=== PATIENT | female | born 1945 | race Caucasian/White ===

== ENCOUNTER 2018-08-30 09:43 | Inpatient (IN) ==
[2018-08-30] MEDS ORDERED: Sod Chloride 0.9% Inj 1,000 ML IV.SIG ONE (11:29)
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
[2018-08-30 11:54] LABS: Baso # (Auto) 0.1 th/mm3 (0.0-0.2); Baso % (Auto) 1.2 % (0.0-2.0); Eos # (Auto) 0.1 th/mm3 (0.0-0.4); Eos % (Auto) 1.3 % (0.0-4.0); Hematocrit 28.5 % (35.0-46.0); Hemoglobin 9.4 gm/dL (11.6-15.3); Lymph # (Auto) 1.8 th/mm3 (1.0-4.8); Lymph % (Auto) 22.5 % (9.0-44.0); Mean Corpuscular HGB Conc 33.1 % (32.0-36.0); Mean Corpuscular Hemoglobin 30.5 pg (27.0-34.0); Mean Corpuscular Volume 92.2 fL (80.0-100.0); Mean Platelet Volume 9.4 fL (7.0-11.0); Mono # (Auto) 0.6 th/mm3 (0.0-0.9); Mono % (Auto) 7.5 % (0.0-8.0); Neut # (Auto) 5.4 th/mm3 (1.8-7.7); Neut % (Auto) 67.5 % (16.0-70.0); Platelet Count 287 th/mm3 (150-450); Red Blood Count 3.09 mil/mm3 (4.00-5.30); Red Cell Distribution Width 13.5 % (11.6-17.2)
[2018-08-30 12:15] LABS: Bilirubin,Urine Negative (Negative); Clarity,Urine Clear (Clear); Color,Urine Yellow (Yellw/Straw); Glucose,Urine (UA) Negative (Negative); Hyaline Casts,Urine 5 /lpf (0-3); Leukocyte Esterase,Urine Negative (Negative); Mucus,Urine Few /lpf (Occasional); Nitrite,Urine Negative (Negative); Specific Gravity,Urine 1.008 (1.002-1.035); Squamous Epithelial Cell,Urine <1 /hpf (0-5)
[2018-08-30 12:17] LABS: Alanine Aminotransferase 22 U/L (10-53); Albumin 3.1 g/dL (3.4-5.0); Anion Gap 5 meq/L (5-15); Aspartate Aminotransferase 30 U/L (15-37); Blood Urea Nitrogen 18 mg/dL (7-18); Calcium 9.4 mg/dL (8.5-10.1); Carbon Dioxide 28.5 meq/L (21.0-32.0); Chloride 106 meq/L (98-107); Glomerular Filtration Rate 40 mL/min (>89); Glucose,Random 74 mg/dL (74-106); Magnesium 2.2 mg/dL (1.5-2.5); Sodium 139 meq/L (136-145)
[2018-08-30 12:26] LABS: Alkaline Phosphatase 88 U/L (45-117); Thyroid Stimulating Hormone 0.606 uIU/mL (0.358-3.740); Total Protein 7.6 g/dL (6.4-8.2)
[2018-08-30 13:03] LABS: Amphetamine Screen,Urine Neg (Neg); Barbiturate Screen,Urine Neg (Neg); Cannabinoid Screen,Urine Neg (Neg); Cocaine Screen,Urine Neg (Neg)
[2018-08-30 13:05] LABS: Opiate Screen,Urine Neg (Neg)
[2018-08-30] MEDS ORDERED: Aluminum/Magnesium/Simethacone Susp 30 ML UDC PO PRN (15:07)
[2018-08-30] MEDS ORDERED: Acetaminophen 325 MG Tablet PO PRN (15:16)
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
[2018-08-30] MEDS: MAGNESIUM OXIDE 400 MG PO SCH ×2 (19:29→22:53)
[2018-08-30] MEDS ORDERED: MIRTAZAPINE 7.5 MG PO SCH (21:00)
[2018-08-30] MEDS ORDERED: DOCUSATE SODIUM 50 MG PO SCH (21:00)
[2018-08-30] MEDS: Ascorbic Acid 500 MG Tablet PO SCH (21:08)
--- NOTE | 2018-08-30 22:53 | XR ---
EXAM DATE: 08/30/2018 10:50 PM EST AGE/SEX: 73 years / Female INDICATIONS: Left elbow pain and bruising after fall. CLINICAL DATA: This is the patient's initial encounter. Patient reports that signs and symptoms have been present for 1 day and indicates a pain score of Nonresponsive. MEDICAL/SURGICAL HISTORY: Non-responsive. Non-responsive. COMPARISON: No prior exams available for comparison. FINDINGS: Bony structures are intact and in normal alignment. Joints are intact without dislocation or signifi cant arthropathy. Osseous density is normal. Soft tissues are unremarkable. No radiopaque foreign bodies seen. CONCLUSION: No evidence of recent bony injury. Electronically signed by: Yoshi Muller MD 08/30/2018 10:51 PM EST
--- NOTE | 2018-08-30 22:59 | CT ---
EXAM DATE: 08/30/2018 10:56 PM EST AGE/SEX: 73 years / Female INDICATIONS: Trauma. Fall. Vertigo. CLINICAL DATA: This is the patient's initial encounter. Patient reports that signs and symptoms have been present for 1 day and indicates a pain score of 2/10. MEDICAL/SURGICAL HISTORY: Alzheimer's disease. Renal insufficiency, chronic. Diabetes. Hypertens ion. None. RADIATION DOSE: 33.97 CTDI (mGy) COMPARISON: No prior exams available for comparison. TECHNIQUE: CT of the head without contrast. Using automated exposure control and adjustment of the mA and/or kV according to patient size, radiation dose was kept as low as reasonably achievable to ob tain optimal diagnostic quality images. DICOM format image data is available electronically for revi ew and comparison. FINDINGS: Cerebrum: The ventricles are normal for age. No evidence of midline shift, mass lesion, hemorrhage or acute infarction. No extraaxial fluid collections are seen. Posterior Fossa: The cerebellum and brainstem are intact. The 4th ventricle is midline. The cerebe llopontine angle is unremarkable. Extracranial: The visualized portion of the orbits is intact. Skull: The calvaria is intact. No evidence of skull fracture. CONCLUSION: No acute intracranial injury . Electronically signed by: Yoshi Muller MD 08/30/2018 10:58 PM EST
[2018-08-31] MEDS: Escitalopram 10 MG Tablet PO SCH (08:44)
[2018-08-31] MEDS: amLODIPine 5 MG Tablet PO SCH (08:44)
[2018-08-31] MEDS: Lisinopril 20 MG Tablet PO SCH (08:44)
[2018-08-31] MEDS: Lactobacillus Acidophilus/L. Spores Tablet PO SCH (08:45)
[2018-08-31] MEDS: Ascorbic Acid 500 MG Tablet PO SCH (08:45)
[2018-08-31] MEDS: Multivitamin/Minerals Therapeutic Tablet PO SCH (08:45)
[2018-08-31] MEDS: Insulin Detemir Inj 1,000 UNIT/10 ML Vial SQ SCH (08:46)
[2018-08-31] MEDS: Docusate Sodium Liq 100 MG/10 ML UDC PO SCH (08:46)
[2018-08-31] MEDS: MAGNESIUM OXIDE 400 MG PO SCH ×2 (08:48→13:40)
[2018-08-31 12:28] LABS: Calcium 9.8 mg/dL (8.5-10.1); Carbon Dioxide 28.5 meq/L (21.0-32.0); Potassium 5.3 meq/L (3.5-5.1)
[2018-08-31 12:36] LABS: Chol/HDL Ratio 1.79 Ratio; HDL Cholesterol 56.3 mg/dL (40.0-60.0)
[2018-08-31] MEDS ORDERED: Aluminum/Magnesium/Simethacone Susp 30 ML UDC PO PRN (15:56)
[2018-08-31] MEDS ORDERED: Bisacodyl 10 MG Supp RECTAL PRN (15:56)
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
[2018-08-31 16:21] LABS: Hemoglobin A1c 5.7 % (4.3-6.0)
[2018-08-31] MEDS: Magnesium Oxide 400 MG Tablet PO SCH (17:13)
--- NOTE | 2018-08-31 17:14 | P.CON ---
History of Present Illness Consult date: 08/31/18 Requesting Physician: Yoshi Barry Reason for Consult: HTN and DM Primary Care Provider: PROVIDER NON STAFF Chief Complaint: dementia and behavioral disturbances History of Present Illness: This is a 73-year-old female patient who was brought here under Wilkes Act from [facility] with dementia with behavioral disturbances and aggressive behavior. Supposedly patient has underwent recent cholecystectomy at another facility and since that time her dementia has been progressing including worsening sundowning and aggressive behavior. At the time of assessment patient is resting comfortable in bed. Awakens to voice. Is very confused and unable to contribute to any of her medical history of occurrences leading up to presentation to the hospital. There are also no records to review in the medical record regarding patient's medical history. [facility] has set up a meeting to speak with family tomorrow. [facility] has been consulted for medical management of her diabetes and hypertension. Review of Systems unobtainable due to mental condition PMFSH - History History Provided By: Patient, Medical Record - Medical History Medical History: Medical History (Last Reviewed 08/31/18 @ 17:26 by Rosa Horton) Alzheimer disease Anxiety Bipolar 1 disorder Chronic kidney disease Dementia Diabetes Hypercholesteremia Hypertension - Surgical History Surgical History: Surgical History (Last Updated 08/31/18 @ 17:27 by Rosa Horton) History of cholecystectomy - Family History Family History: Family History (Last Updated 08/31/18 @ 17:26 by Rosa Horton) Other Family history non-contributory - Social History I have reviewed the patient's Social History: Yes - Tobacco History Second Hand Smoke Exposure: No Tobacco Use In Past 30 Days: No Smoking Status: Never smoker - Alcohol History How Often Do You Have a Drink Containing Alcohol: Never - Substance Use History Substance History: No History of Abuse - Travel History Recent Travel in the [place] Within the Last 8 Weeks: No Recent Travel Out of the Country Within the Last 8 Weeks: No - Immunization History Tetanus Immunization: Unsure Medications and Allergies Active Medications: Active Medications Acetaminophen (Tylenol) 650 mg PO Q4H PRN PRN Reason: Mild Pain/Temp 100F or above Al Hydrox/Mg Hydrox/Simethicone (Mag-Al Plus Susp Liq) 30 ml PO Q6H PRN PRN Reason: DYSPEPSIA Al Hydroxide/Mg Hydroxide (Milk Of Magnesia Liq) 30 ml PO Q12H PRN PRN Reason: Mild Constipation Amlodipine Besylate (Norvasc) 5 mg PO DAILY [facility] Last Admin: 08/31/18 08:44 Dose: 5 mg Ascorbic Acid (Vitamin C) 500 mg PO BID [facility] Last Admin: 08/31/18 08:45 Dose: 500 mg Aspirin (Ecotrin) 81 mg PO DAILY [facility] Last Admin: 08/31/18 08:44 Dose: 81 mg Atorvastatin Calcium (Lipitor) 40 mg PO DAILY [facility] Last Admin: 08/31/18 08:45 Dose: 40 mg Bisacodyl (Dulcolax Supp) 10 mg RECTAL DAILY PRN PRN Reason: SEVERE CONSITIPATION Diphenhydramine HCl (Benadryl) 50 mg PO HS PRN PRN Reason: INSOMNIA Docusate Sodium (Colace Liq) 50 mg PO BID [facility] Last Admin: 08/31/18 08:46 Dose: 50 mg Escitalopram Oxalate (Lexapro) 10 mg PO DAILY [facility] Last Admin: 08/31/18 08:44 Dose: 10 mg Famotidine (Pepcid) 10 mg PO DAILY [facility] Hydroxyzine HCl (Atarax) 50 mg PO Q6H PRN PRN Reason: ANXIETY Last Admin: 08/31/18 17:13 Dose: 50 mg Hydroxyzine Pamoate (Vistaril) 25 mg PO Q6H PRN PRN Reason: Agitation Last Admin: 08/31/18 08:50 Dose: 25 mg Insulin Detemir (Levemir Inj) 14 unit SQ DAILY [facility] Last Admin: 08/31/18 08:46 Dose: 14 unit Lactobacillus Acidophilus (Lactinex) 1 tab PO DAILY [facility] Last Admin: 08/31/18 08:45 Dose: 1 tab Lactulose (Lactulose Liq) 30 ml PO DAILY PRN PRN Reason: SEVERE CONSITIPATION Lisinopril (Prinivil) 40 mg PO DAILY [facility] Last Admin: 08/31/18 08:44 Dose: 40 mg Magnesium Oxide (Mag-Ox) 400 mg PO BID@1100,1800 [facility] Last Admin: 08/31/18 17:13 Dose: 400 mg Metoprolol Succinate (Toprol Xl) 50 mg PO DAILY [facility] Last Admin: 08/31/18 08:44 Dose: 50 mg Mirtazapine (Remeron) 7.5 mg PO HS [facility] Miscellaneous (Pill Splitter) 1 each OTHER UNSCH PRN PRN Reason: PILL SPLITTER Miscellaneous (Pill Splitter) 1 each OTHER UNSCH PRN PRN Reason: PILL SPLITTER Multivitamins/Minerals (Theragran-M) 1 tab PO DAILY [facility] Last Admin: 08/31/18 08:45 Dose: 1 tab Pantoprazole Sodium (Protonix) 40 mg PO DAILY [facility] Last Admin: 08/31/18 08:44 Dose: 40 mg Potassium Chloride (Klor-Con 10) 10 meq PO DAILY [facility] Last Admin: 08/31/18 08:44 Dose: 10 meq Senna/Docusate Sodium (Mady-Colace) 1 tab PO BID [facility] Sennosides (Senokot) 8.6 mg PO BID [facility] Last Admin: 08/31/18 08:48 Dose: 8.6 mg Sennosides (Senokot) 17.2 mg PO Q12H PRN PRN Reason: Moderate Constipation Allergies Allergy/AdvReac Type Severity Reaction Status Date / Time No Known Allergies Allergy Unverified 08/30/18 11:07 Home Medications Medication Instructions Recorded Confirmed Type Lactobacillus acidophilus 1 tab PO DAILY 08/30/18 08/30/18 History acetaminophen [Tylenol] 650 mg PO Q4H PRN 08/30/18 08/30/18 History amlodipine 5 mg PO DAILY 08/30/18 08/30/18 History ascorbic acid (vitamin C) [Vitamin 500 mg PO BID 08/30/18 08/30/18 History C] aspirin 81 mg PO DAILY 08/30/18 08/30/18 History bisacodyl [Dulcolax (bisacodyl)] 10 mg [place] DAILY PRN 08/30/18 08/30/18 History docusate sodium [COLACE Clear] 50 mg PO BID 08/30/18 08/30/18 History escitalopram oxalate [Lexapro] 10 mg PO DAILY 08/30/18 08/30/18 History famotidine [Pepcid] 40 mg PO DAILY 08/30/18 08/30/18 History hydroxyzine pamoate [Vistaril] 25 mg PO Q6H PRN 08/30/18 08/30/18 History insulin glargine [Basaglar KwikPen 14 unit SUBCUT DAILY 08/30/18 08/30/18 History U-100 Insulin] lisinopril 40 mg PO DAILY 08/30/18 08/30/18 History magnesium citrate [Citroma] 296 ml PO QAM PRN 08/30/18 08/30/18 History magnesium hydroxide [Milk of 30 ml PO HS PRN 08/30/18 08/30/18 History Magnesia] magnesium oxide 400 mg PO QID 08/30/18 08/30/18 History metoprolol succinate 50 mg PO DAILY 08/30/18 08/30/18 History mirtazapine 7.5 mg PO HS 08/30/18 08/30/18 History multivitamin with minerals 1 tab PO DAILY 08/30/18 08/30/18 History omeprazole 40 mg PO DAILY 08/30/18 08/30/18 History potassium chloride [Klor-Con 10] 10 meq PO DAILY 08/30/18 08/30/18 History rosuvastatin [Crestor] 20 mg PO DAILY 08/30/18 08/30/18 History sennosides 8.6 mg PO BID 08/30/18 08/30/18 History sodium phosphates [Fleet Enema] 1 applicatio [place] DAILY PRN 08/30/18 08/30/18 History Physical Exam Vital signs: Vital Signs 08/30/18 17:37 08/30/18 23:17 08/31/18 00:17 Temperature 98.1 F 98 F Pulse Rate 56 L 57 L 52 L Respiratory Rate 16 16 16 Blood Pressure 115/53 L 122/53 L 132/56 L Pulse Oximetry 96 98 96 08/31/18 01:17 08/31/18 06:00 08/31/18 06:17 Temperature 98.4 F Pulse Rate 52 L 71 71 Respiratory Rate 16 17 18 Blood Pressure 128/62 123/72 123/72 Pulse Oximetry 94 L 08/31/18 13:22 Temperature Pulse Rate 65 Respiratory Rate 16 Blood Pressure 127/55 L Pulse Oximetry 95 Intake & Output 08/30/18 08/31/18 08/31/18 18:59 06:59 18:59 Intake Total 1000 / 1000 Balance 1000 / 1000 Weight 54.6 kg Intake: IV 1000 / 1000 NS Inj 1,000 ML @ Wide Open IV. 1000 / 1000 SIG BOLUS ONE Rx#:[id number] Other: Weight On Admission 54.6 kg Narrative: GENERAL: Well-developed, well-nourished patient resting in bed. Confused. SKIN: Warm and dry. HEAD: Normocephalic. Atraumatic. EYES: Pupils equal and round. No scleral icterus. No injection or drainage. ENT: No nasal bleeding or discharge. Mucous membranes pink and moist. NECK: Supple. Trachea midline. CARDIOVASCULAR: Regular rate and rhythm. S1, S2 noted. RESPIRATORY: No accessory muscle use. Diminished breath sounds. Breath sounds equal bilaterally. GASTROINTESTINAL: Abdomen soft, non-tender, nondistended. Normoactive bowel sounds x4. MUSCULOSKELETAL: No obvious deformities. Extremities without clubbing, cyanosis , or edema. NEUROLOGICAL: Confused. No obvious cranial nerve deficits. Motor grossly within normal limits. 5/5 muscle strength in bilateral upper and lower extremities. . Assessment and Plan - Assessment (1) Dementia with behavioral disturbance Code(s): F03.91 - Unspecified dementia with behavioral disturbance Status: Acute (2) Alzheimer's disease with late onset Code(s): G30.1 - Alzheimer's disease with late onset; F02.80 - Dementia in other diseases classified elsewhere without behavioral disturbance Status: Acute (3) Dementia in other diseases classified elsewhere with behavioral disturbance Code(s): F02.81 - Dementia in other diseases classified elsewhere with behavioral disturbance Status: Acute - Plan This is a 73-year-old female patient with Alzheimer's dementia with behavioral disturbances -Management per psychiatric team. -Continue Atarax and Vistaril. History of hypertension, chronic -Continue to monitor blood pressure trends. -Continue Norvasc and lisinopril. Type 2 diabetes, chronic -Accu-Chek, monitor blood sugar trends. -Continue long-acting insulin. -Diabetic diet. Hyperlipidemia: Continue statin. Mild hyperkalemia -K increased to 5.3. Will give one time dose of Lactulose. -Check BMP in am. Chronic kidney disease -Stable. Creatinine 1.3 which is baseline for patient. Continue to monitor. -Asymptomatic. Urinating well. Normocytic, normochromic anemia -Hemoglobin 9.4 on presentation. No signs of bleeding. No known history of anemia. -Will check iron profile. Recheck CBC in am. -Obtain prior labs from PCP. Follow. -Monitor for any bleeding. DVT prophylaxis: Ambulation. Thank you for this consultation. We will follow with you.
[2018-08-31] MEDS ORDERED: Senna/Docusate Sodium 8.6/50 MG Tablet PO SCH (21:00)
[2018-08-31 21:22] LABS: % Iron Saturation 11.1 % (20-50)
[2018-09-01] MEDS: Docusate Sodium Liq 100 MG/10 ML UDC PO SCH ×3 (01:51→20:07)
[2018-09-01] MEDS: Mirtazapine 15 MG Tablet PO SCH ×2 (01:52→20:06)
[2018-09-01] MEDS: Ascorbic Acid 500 MG Tablet PO SCH ×3 (01:54→20:07)
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
[2018-09-01] MEDS: Escitalopram 10 MG Tablet PO SCH (09:39)
[2018-09-01] MEDS: Lisinopril 20 MG Tablet PO SCH (09:40)
[2018-09-01] MEDS: Famotidine 20 MG Tablet PO SCH (09:41)
[2018-09-01] MEDS: Lactobacillus Acidophilus/L. Spores Tablet PO SCH (09:41)
[2018-09-01] MEDS: Multivitamin/Minerals Therapeutic Tablet PO SCH (09:43)
[2018-09-01] MEDS: amLODIPine 5 MG Tablet PO SCH (09:43)
[2018-09-01] MEDS: Insulin Detemir Inj 1,000 UNIT/10 ML Vial SQ SCH (10:16)
--- NOTE | 2018-09-01 10:43 | P.PNPSY ---
Subjective Remarks: Patient seen today in day room with floor staff, chart reviewed, patient compliant medication. Patient continues diffusely confused disoriented though calmer today less vigilant or paranoid. Did acknowledge memory issues that has made her somewhat sad. The patient's focus with me was measured and 1 or 2 minutes before she wandered off. I later spoke with patient's and daughter. They requested that she be made a DNR. They have given me verbal okay for her psychotropic medication I discussed with him the use of Seroquel in small doses they have approved of that also. They have also talked with [facility] for possible placement there will have a counselor Jessie called to him at [facility] to discuss this. Patient did have some episodes of dyscontrol last night necessitating an ETO. We will start her on Seroquel 12.5 mg 2 PM and 8 PM Review of Systems All other systems reviewed negative except as stated in HPI Mental Status Examination Appearance: Appropriate Consciousness: Alert Orientation: Person Motor Activity: Abnormal gait (Walks with a cane at times, somewhat shuffling) Speech: Other (Poverty of speech) Language: Adequate Fund of Knowledge: Poor Attention and Concentration: Inadequate Memory: Impaired Mood: Irritable Affect: Other (Slight increased range and intensity) Thought Process & Associations: Other (Unable to assess) Thought Content: Other (Unable to assess) Hallucination Type: None Delusion Type: Paranoid (Family reports patient was breathing on the window with remote control yelling for someone to help her) Suicidal Ideation: No Suicidal Plan: No Suicidal Intention: No Homicidal Ideation: No Homicidal Plan: No Homicidal Intention: No Insight: Poor Judgment: Poor Assessment and Plan - Assessment (1) Alzheimer's disease with late onset Code(s): G30.1 - Alzheimer's disease with late onset; F02.80 - Dementia in other diseases classified elsewhere without behavioral disturbance Status: Acute (2) Dementia in other diseases classified elsewhere with behavioral disturbance Code(s): F02.81 - Dementia in other diseases classified elsewhere with behavioral disturbance Status: Acute - Plan Plan: Patient remains diffusely confused disoriented and demented and some sundowning behaviors last night. Did meet with patient's family today patient will be made a DNR. We will initiate Seroquel low-dose 2 times per day continue to work with placement issues Justification for Continued Inpatient Stay: At this time patient would decompensate a place to a lower level of care Discharge Planning: To be determined we are working with family related to placement Request Healthcare Surrogate/Guardian Advocate?: Yes
[2018-09-01] MEDS: Magnesium Oxide 400 MG Tablet PO SCH ×2 (12:31→18:43)
[2018-09-01] MEDS: QUEtiapine 25 MG Tablet PO SCH ×2 (13:56→20:08)
--- NOTE | 2018-09-01 15:15 | P.TTN ---
- Patient Problems Problems: 1. Discharge planning 2. Medication compliance 3. Knowledge deficit 4. Lack of coping skills - Progress Toward Goals Provider Present: Dr. Ganesh Barry, Dr. Raúl Beltran Provider Input: 09/01/18: New admission will meet today Nurse(s) Present: Renate Nurse Input: 09/01/18: Med Compliant, Exit seeking, Guarded. Psychiatric Counselors Present: Aquilino Galvan Jr., [facility], Jessie Mayorga, [facility] Psychiatric Therapist Input: 09/01/18: Counselor faxed packet to [facility]. Group Spec/RT/OT/NATH Present: Joanne Francisco, GPS, Ashkan Jenkins, OT Group Spec/RT/OT/NATH Input: 09/01/18: Pt is on a 1:1 and is unable to tolerate the group activities. Pt has a diffucult time remaining still and will pade the hallways most of the day. Will encourage group participation. - Discharge Plan Possible placement - Documentation Teaching Recipient: Patient
--- NOTE | 2018-09-01 15:58 | P.PNIM ---
Subjective Interval history: Follow-up with hypertension, diabetes type 2, hyperlipidemia, hyperkalemia, CKD , anemia, and Alzheimer's dementia with behavioral disturbance. Patient seen and examined, sitting in the chair in the day room with a sitter. Sitter reported patient had a fall without injury. However, patient complained of left elbow pain and ecchymosis. X-ray negative, and head CT no acute findings. COURTESY CAR DRIVER reported patient was hitting staff and nurses, and very irritable. Patient denies any pain, chest pain or shortness of breath, denies any headache or dizziness, denies any abdominal pain, nausea, vomiting, diarrhea or constipation. Patient denies any fever or chills. Patient alert and oriented x1 and able to answer some of the questions. Physical Exam Vital signs: Vital Signs 08/31/18 17:26 08/31/18 20:00 Pulse Rate 79 Respiratory Rate 16 20 Blood Pressure 128/58 L Pulse Oximetry 96 Narrative: GENERAL: Well-developed, well-nourished, female in no apparent distress SKIN: Warm and dry. HEAD: Atraumatic. Normocephalic. EYES: Pupils equal and round. No scleral icterus. No injection or drainage. ENT: No nasal bleeding or discharge. Mucous membranes pink and moist. NECK: Trachea midline. No JVD. CARDIOVASCULAR: Regular rate and rhythm. RESPIRATORY: No accessory muscle use. Clear to auscultation. Breath sounds equal bilaterally. GASTROINTESTINAL: Abdomen soft, non-tender, nondistended. Hepatic and splenic margins not palpable. MUSCULOSKELETAL: Extremities without clubbing, cyanosis, or edema. No obvious deformities. Left elbow ecchymosis NEUROLOGICAL: Awake and alert and oriented x1. No obvious cranial nerve deficits. Motor grossly within normal limits. Generalized weakness moving all 4 extremities . Normal speech. PSYCHIATRIC: Flat mood and affect; insight and judgment unreliable Results - Labs CBC & Chem 7: 08/30/18 11:25 08/31/18 11:27 Laboratory Results - last 24 hr 08/31/18 08/31/18 08/31/18 11:27 11: 15:56 POC Glucose 81 Hemoglobin A1c 5.7 Iron 27 L TIBC 242 L % Saturation 11.1 L Assessment and Plan - Assessment (1) Dementia with behavioral disturbance Code(s): F03.91 - Unspecified dementia with behavioral disturbance Status: Acute (2) Alzheimer's disease with late onset Code(s): G30.1 - Alzheimer's disease with late onset; F02.80 - Dementia in other diseases classified elsewhere without behavioral disturbance Status: Acute (3) Dementia in other diseases classified elsewhere with behavioral disturbance Code(s): F02.81 - Dementia in other diseases classified elsewhere with behavioral disturbance Status: Acute - Plan This is a 73-year-old female patient with past medical history of Alzheimer's dementia, hypertension, diabetes mellitus type 2, hyperlipidemia, and chronic kidney disease. Alzheimer's dementia with behavioral disturbances Altered mental status Fall -Management per psychiatric team. -Continue Atarax and Vistaril. -Rule out metabolic causes, urinalysis negative -Patient refused labs this morning recheck again in a.m. -Fall risk precaution, with sitter History of hypertension, chronic Hyperlipidemia Blood pressure controlled, in the low side -Continue to monitor blood pressure trends. -Continue Norvasc and lisinopril, : Continue statin -Hold metoprolol for low blood pressure and recent fall -Monitor blood pressure and adjust medication as necessary Type 2 diabetes, chronic Blood sugar fair controlled -Continue Accu-Chek, monitor blood sugar trends. -Continue long-acting insulin, Levemir -Diabetic diet -Check hemoglobin A1c, pending Chronic kidney disease Mild hyperkalemia -Stable. Creatinine 1.3 which is baseline for patient -Asymptomatic. Urinating well. -K increased to 5.3. Given lactulose yesterday -Recheck check BMP in am found follow renal indicis Normocytic, normochromic anemia No known history of anemia. No signs of bleeding. -Hemoglobin 9.4 on presentation. -Will check iron profile. Recheck CBC in am. -Obtain prior labs from PCP. Follow. -Monitor for any bleeding. DVT prophylaxis: Ambulation. Code Status: Full code Discussed Condition With: Patient and nurse
--- NOTE | 2018-09-01 16:26 | XR ---
EXAM DATE: 09/01/2018 4:21 PM EST AGE/SEX: 73 years / Female INDICATIONS: Patient stubbed toes and complains of toe pain, mostly in 2nd digit. CLINICAL DATA: This is the patient's initial encounter. Patient reports that signs and symptoms have been present for 1 day and indicates a pain score of 10/10. MEDICAL/SURGICAL HISTORY: None. . Right ankle ORIF. COMPARISON: No prior exams available for comparison. FINDINGS: Bony structures are demineralized. There is no evidence of acute fracture or dislocation. Fixation hardware is identified in the lower fibula and tibia. There are no destructive changes. CONCLUSION: No evidence of acute fracture. Significant bone demineralization. Status post ORIF of the distal tibia and fibula. Electronically signed by: Oswaldo Hidalgo MD 09/01/2018 4:25 PM EST
[2018-09-02] MEDS: Insulin Detemir Inj 1,000 UNIT/10 ML Vial SQ SCH (09:59)
[2018-09-02] MEDS: Magnesium Oxide 400 MG Tablet PO SCH (11:14)
[2018-09-02] MEDS: Ascorbic Acid 500 MG Tablet PO SCH ×2 (11:15→20:59)
[2018-09-02] MEDS: Famotidine 20 MG Tablet PO SCH (11:15)
[2018-09-02] MEDS: Escitalopram 10 MG Tablet PO SCH (11:16)
[2018-09-02] MEDS: Lactobacillus Acidophilus/L. Spores Tablet PO SCH (11:16)
[2018-09-02] MEDS: Multivitamin/Minerals Therapeutic Tablet PO SCH (11:16)
[2018-09-02] MEDS: Docusate Sodium Liq 100 MG/10 ML UDC PO SCH ×2 (11:23→20:58)
[2018-09-02] MEDS: Lisinopril 20 MG Tablet PO SCH (11:25)
[2018-09-02] MEDS: amLODIPine 5 MG Tablet PO SCH (11:25)
--- NOTE | 2018-09-02 14:10 | P.PNPSY ---
Subjective Remarks: Patient seen and etienne today with one-to-one and nurse Dawson, chart reviewed, patient increasingly agitated irritable yelling crying wandering into other patient's rooms being markedly resistant to any type of intervention. At this point I feel patient does need as needed bed we will offer 1 mg Ativan IM at this time. We will also increase the scheduled Seroquel to 3 times daily from twice daily Review of Systems All other systems reviewed negative except as stated in HPI Mental Status Examination Appearance: Disheveled Consciousness: Alert Orientation: Person Motor Activity: Abnormal gait (Somewhat unsteady gait) Speech: Rapid, Other (Some poverty of speech) Language: Other (Limited) Fund of Knowledge: Poor Attention and Concentration: Inadequate Memory: Impaired Mood: Sad, Oppositional Affect: Other (Increased range and intensity) Thought Process & Associations: Disorganized Thought Content: Other (Disorganized) Hallucination Type: None Delusion Type: None Suicidal Ideation: No Suicidal Plan: No Suicidal Intention: No Homicidal Ideation: No Homicidal Plan: No Homicidal Intention: No Insight: Poor Judgment: Poor Assessment and Plan - Assessment (1) Alzheimer's disease with late onset Code(s): G30.1 - Alzheimer's disease with late onset; F02.80 - Dementia in other diseases classified elsewhere without behavioral disturbance Status: Acute - Plan Plan: Patient continues markedly demented though today with increased agitation screaming yelling defiant behaviors and sustaining a as needed of Ativan. Also she on the medication adjustments above Justification for Continued Inpatient Stay: At this time patient would decompensate if placed in a lower level of care Discharge Planning: To be determined with assistance of family Request Healthcare Surrogate/Guardian Advocate?: Yes (1) Alzheimer's disease with late onset Qualifiers: Dementia behavioral disturbance: with behavioral disturbance Qualified Code(s ): G30.1 - Alzheimer's disease with late onset; F02.81 - Dementia in other diseases classified elsewhere with behavioral disturbance
--- NOTE | 2018-09-02 14:27 | P.PNIM ---
Subjective Interval history: Follow-up visit anemia, mild hyperkalemia, DM 2, HTN, Alzheimer's. Patient seen and examined today. Very irritable. Reported to have been hitting staff since this morning. Has been pacing and walking around trying to elope. Does not want to be examined. Attempted to speak and examined patiet, aggressive wanting to hit. Physical Exam Vital signs: Vital Signs 09/01/18 18:15 09/02/18 06:16 Temperature 97.2 F L Pulse Rate 70 73 Respiratory Rate 18 18 Blood Pressure 93/60 L 123/57 L Pulse Oximetry 93 L 94 L Intake & Output 09/01/18 09/02/18 09/02/18 18:59 06:59 18:59 Intake Total 360 / 360 Balance 360 / 360 Intake: Oral 360 / 360 Narrative: GENERAL: This is a well-developed elderly female, very aggressive and irritable , in no apparent distress. SKIN: Pale, HEENT: Normocephalic. Nose without bleeding. Airway patent. NECK: Trachea midline. MUSCULOSKELETAL: Extremities without clubbing, cyanosis, or edema. NEUROLOGICAL: Awake and alert. Moves all extremities. Results - Labs CBC & Chem 7: 08/30/18 11:25 08/31/18 11:27 - Imaging Impressions Foot X-Ray 09/01/18 00:00 CONCLUSION: No evidence of acute fracture. Significant bone demineralization. Status post ORIF of the distal tibia and fibula. Assessment and Plan - Assessment (1) Dementia with behavioral disturbance Code(s): F03.91 - Unspecified dementia with behavioral disturbance Status: Acute (2) Alzheimer's disease with late onset Code(s): G30.1 - Alzheimer's disease with late onset; F02.80 - Dementia in other diseases classified elsewhere without behavioral disturbance Status: Acute (3) Dementia in other diseases classified elsewhere with behavioral disturbance Code(s): F02.81 - Dementia in other diseases classified elsewhere with behavioral disturbance Status: Acute - Plan 72-year-old female with primary medical history of DM 2, HTN, dementia, Alzheimer's disease who initially came into the hospital under Wilkes act from [facility] secondary to aggressive behavior. She is now admitted to inpatient psychiatry unit for further evaluation. Consulted for assistance with medical management. Alzheimer's dementia with behavioral disturbances -Management per psychiatric team. -Continue Atarax and Vistaril -May need to increase Seroquel dose. Patient continues to be aggressive to staff. Hypertension, controlled HLD -BP <100, decrease lisinopril to 10 mg daily. Hold Norvasc. Continue ASA -Continue statin medication -Monitor BP trend Type 2 diabetes, chronic -Accu-Chek, monitor blood sugar trends. -Continue Levemir 14 units daily -Diabetic diet. Check hemoglobin A1c Mild hyperkalemia -K increased to 5.3. Discontinue potassium supplement. -Recheck BMP. BMP was ordered this a.m. but unable to get results possibly because patient has been very aggressive. Chronic kidney disease -Stable. Creatinine 1.3 which is baseline for patient. -Monitor renal indicis intermittently Normocytic, normochromic anemia Possibly anemia of chronic disease -No signs of bleeding. No known history of anemia. -Start iron supplement daily DVT prophylaxis, Ambulation. Code Status: Full code Discussed Condition With: Nursing Discharge Planning: DC disposition by primary team (2) Alzheimer's disease with late onset Qualifiers: Dementia behavioral disturbance: with behavioral disturbance Qualified Code(s ): G30.1 - Alzheimer's disease with late onset; F02.81 - Dementia in other diseases classified elsewhere with behavioral disturbance
[2018-09-02] MEDS: QUEtiapine 25 MG Tablet PO SCH (20:58)
[2018-09-02] MEDS: Mirtazapine 15 MG Tablet PO SCH (20:59)
[2018-09-03] MEDS: Insulin Detemir Inj 1,000 UNIT/10 ML Vial SQ SCH (09:54)
[2018-09-03] MEDS: Ascorbic Acid 500 MG Tablet PO SCH ×2 (14:14→20:00)
[2018-09-03] MEDS: Ferrous Sulfate 325 MG Tablet PO SCH (14:14)
[2018-09-03] MEDS: Multivitamin/Minerals Therapeutic Tablet PO SCH (14:16)
[2018-09-03] MEDS: Lisinopril 10 MG Tablet PO SCH (14:16)
[2018-09-03] MEDS: Famotidine 20 MG Tablet PO SCH (14:16)
[2018-09-03] MEDS: Magnesium Oxide 400 MG Tablet PO SCH (14:17)
[2018-09-03] MEDS: Escitalopram 10 MG Tablet PO SCH (14:17)
[2018-09-03] MEDS: Docusate Sodium Liq 100 MG/10 ML UDC PO SCH ×2 (14:21→20:00)
[2018-09-03] MEDS: QUEtiapine 25 MG Tablet PO SCH ×3 (14:22→20:00)
[2018-09-03] MEDS: Lactobacillus Acidophilus/L. Spores Tablet PO SCH (14:22)
--- NOTE | 2018-09-03 14:26 | P.PNPSY ---
Subjective Remarks: Patient seen and etienne with nurse Osman, chart reviewed, patient showing mixed compliance with medication refusing many of the oral medications if remains diffusely confused and wandering exit seeking needing redirection at times quite irritable and resistant to redirection. We will encourage patient is compliance with the oral Seroquel. She continues to refuse consider alternative medication Review of Systems All other systems reviewed negative except as stated in HPI Mental Status Examination Appearance: Disheveled Consciousness: Alert Orientation: Person Motor Activity: Abnormal gait (Somewhat unsteady gait) Speech: Rapid, Other (Some poverty of speech) Language: Other (Limited) Fund of Knowledge: Poor Attention and Concentration: Inadequate Memory: Impaired Mood: Angry, Sad, Oppositional Affect: Other (Increased range and intensity) Thought Process & Associations: Disorganized Thought Content: Other (Disorganized) Hallucination Type: None Delusion Type: None Suicidal Ideation: No Suicidal Plan: No Suicidal Intention: No Homicidal Ideation: No Homicidal Plan: No Homicidal Intention: No Insight: Poor Judgment: Poor Assessment and Plan - Assessment (1) Alzheimer's disease with late onset Code(s): G30.1 - Alzheimer's disease with late onset; F02.80 - Dementia in other diseases classified elsewhere without behavioral disturbance Status: Acute - Plan Plan: Patient remains diffusely confused disoriented demented, exit seeking at times angry especially when attempts are made at redirection and intervention with staff Justification for Continued Inpatient Stay: At this time patient would decompensate a place to a lower level of care Discharge Planning: To be determined with assistance of family Request Healthcare Surrogate/Guardian Advocate?: Yes (1) Alzheimer's disease with late onset Qualifiers: Dementia behavioral disturbance: with behavioral disturbance Qualified Code(s ): G30.1 - Alzheimer's disease with late onset; F02.81 - Dementia in other diseases classified elsewhere with behavioral disturbance
--- NOTE | 2018-09-03 15:00 | P.PNIM ---
Subjective Interval history: Follow-up visit anemia, mild hyperkalemia, DM 2, HTN, Alzheimer's. Patient seen and examined today. States she is doing well. Confuse. Attempts to get out of the unit, banging entry door. As per nursing, has been refusing meds on and off. She also refused lab draws. Physical Exam Vital signs: Vital Signs 09/02/18 18:04 Temperature 98.4 F Pulse Rate 87 Respiratory Rate 17 Blood Pressure 104/81 Pulse Oximetry 96 Intake & Output 09/02/18 09/03/18 09/03/18 18:59 06:59 18:59 Intake Total 600 / 600 120 / 120 Balance 600 / 600 120 / 120 Intake: Oral 600 / 600 120 / 120 Narrative: GENERAL: This is a thin appearing, elderly female, in no apparent distress. SKIN: Warm and dry. HEENT: Normocephalic. Pupils equal round and reactive. Nose without bleeding. Airway patent. NECK: Trachea midline. CARDIOVASCULAR: Regular rate and rhythm without murmurs, gallops, or rubs. RESPIRATORY: Clear to auscultation. Breath sounds equal bilaterally. No wheezes , rales, or rhonchi. GASTROINTESTINAL: Abdomen soft, non-tender, protuberant. Bowel Sounds normoactive x4. MUSCULOSKELETAL: Extremities without clubbing, cyanosis, or edema. NEUROLOGICAL: Awake and alert. Confuse. Moves all extremities. Normal speech. Results - Labs CBC & Chem 7: 08/30/18 11:25 08/31/18 11:27 Assessment and Plan - Assessment (1) Dementia with behavioral disturbance Code(s): F03.91 - Unspecified dementia with behavioral disturbance Status: Acute (2) Alzheimer's disease with late onset Code(s): G30.1 - Alzheimer's disease with late onset; F02.80 - Dementia in other diseases classified elsewhere without behavioral disturbance Status: Acute (3) Dementia in other diseases classified elsewhere with behavioral disturbance Code(s): F02.81 - Dementia in other diseases classified elsewhere with behavioral disturbance Status: Acute - Plan 72-year-old female with primary medical history of DM 2, HTN, dementia, Alzheimer's disease who initially came into the hospital under Wilkes act from [facility] secondary to aggressive behavior. She is now admitted to inpatient psychiatry unit for further evaluation. Consulted for assistance with medical management. Alzheimer's dementia with behavioral disturbances -Management per psychiatric team. -Continue Atarax and Vistaril -May need to increase Seroquel dose. Patient continues to be aggressive to staff. Hypertension, controlled HLD -Lisinopril 10 mg daily. Hold Norvasc. Continue ASA -Continue statin medication -Monitor BP trend Type 2 diabetes, chronic -Accu-Chek, monitor blood sugar trends. -Continue Levemir 14 units daily -Diabetic diet Mild hyperkalemia -K increased to 5.3. Discontinue potassium supplement. -Recheck BMP, unable to get results as patient has been refusing blood draw Chronic kidney disease -Stable. Creatinine 1.3 which is baseline for patient. -Monitor renal indicis intermittently Normocytic, normochromic anemia Possibly anemia of chronic disease -No signs of bleeding. No known history of anemia. -Iron supplement daily DVT prophylaxis, Ambulation. Stable from Hospitalist standpoint. We will sign off. Reconsult as needed. Thank you. Code Status: DNR Discussed Condition With: Nursing Discharge Planning: DC disposition by primary team (2) Alzheimer's disease with late onset Qualifiers: Dementia behavioral disturbance: with behavioral disturbance Qualified Code(s ): G30.1 - Alzheimer's disease with late onset; F02.81 - Dementia in other diseases classified elsewhere with behavioral disturbance
[2018-09-03] MEDS: Mirtazapine 15 MG Tablet PO SCH (20:00)
[2018-09-04] MEDS: Docusate Sodium Liq 100 MG/10 ML UDC PO SCH ×2 (09:03→22:30)
[2018-09-04] MEDS: Lisinopril 10 MG Tablet PO SCH (09:05)
[2018-09-04] MEDS: Magnesium Oxide 400 MG Tablet PO SCH (09:08)
[2018-09-04] MEDS: Escitalopram 10 MG Tablet PO SCH (09:08)
[2018-09-04] MEDS: Ascorbic Acid 500 MG Tablet PO SCH ×2 (09:08→22:30)
[2018-09-04] MEDS: Multivitamin/Minerals Therapeutic Tablet PO SCH (09:08)
[2018-09-04] MEDS: Ferrous Sulfate 325 MG Tablet PO SCH (09:09)
[2018-09-04] MEDS: Famotidine 20 MG Tablet PO SCH (09:09)
[2018-09-04] MEDS: Lactobacillus Acidophilus/L. Spores Tablet PO SCH (09:09)
[2018-09-04] MEDS: Insulin Detemir Inj 1,000 UNIT/10 ML Vial SQ SCH (09:11)
[2018-09-04] MEDS: QUEtiapine 25 MG Tablet PO SCH ×3 (09:12→22:31)
--- NOTE | 2018-09-04 13:32 | P.PNPSY ---
Subjective Remarks: Patient was seen and case discussed with nursing. Patient is alert and oriented x1. Nursing is concerned about a low blood sugar reading this morning. It is difficult to gauge what her pattern has been given her oppositional behavior and confusion. She remains internally stimulated, she is exit seeking Mental Status Examination Appearance: Disheveled Consciousness: Alert Orientation: Person Motor Activity: Abnormal gait (Somewhat unsteady gait) Speech: Rapid, Other (Some poverty of speech) Language: Other (Limited) Fund of Knowledge: Poor Attention and Concentration: Inadequate Memory: Impaired Mood: Angry, Sad, Oppositional Affect: Other (Increased range and intensity) Thought Process & Associations: Disorganized Thought Content: Other (Disorganized) Hallucination Type: None Delusion Type: None Suicidal Ideation: No Suicidal Plan: No Suicidal Intention: No Homicidal Ideation: No Homicidal Plan: No Homicidal Intention: No Insight: Poor Judgment: Poor Assessment and Plan - Assessment (1) Alzheimer's disease with late onset Code(s): G30.1 - Alzheimer's disease with late onset; F02.80 - Dementia in other diseases classified elsewhere without behavioral disturbance Status: Acute - Plan Plan: Consult hospitalist Justification for Continued Inpatient Stay: Patient would decompensate in a less restrictive setting Request Healthcare Surrogate/Guardian Advocate?: Yes (1) Alzheimer's disease with late onset Qualifiers: Dementia behavioral disturbance: with behavioral disturbance Qualified Code(s ): G30.1 - Alzheimer's disease with late onset; F02.81 - Dementia in other diseases classified elsewhere with behavioral disturbance
[2018-09-04] MEDS: Mirtazapine 15 MG Tablet PO SCH (22:30)
--- NOTE | 2018-09-05 08:44 | P.PNPSY ---
Subjective Remarks: Medical record reviewed and discussed with nursing staff. Patient in her room in bed. Rounded with LUCIANO Dawson. Patient is only alert to self. She is unaware that she is in the hospital. Sleeping and eating well. Refused am accu-check. Nursing staff reports no behavioral concerns. Medication compliant. Will only take medications from selective personnel. Review of Systems All other systems reviewed negative except as stated in HPI Mental Status Examination Appearance: Disheveled Consciousness: Alert Orientation: Person Motor Activity: Abnormal gait (Somewhat unsteady gait) Speech: Rapid, Other (Some poverty of speech) Language: Other (Limited) Fund of Knowledge: Poor Attention and Concentration: Inadequate Memory: Impaired Mood: Appropriate, Sad Affect: Other (Increased range and intensity) Thought Process & Associations: Disorganized Thought Content: Other (Disorganized) Hallucination Type: None Delusion Type: None Suicidal Ideation: No Suicidal Plan: No Suicidal Intention: No Homicidal Ideation: No Homicidal Plan: No Homicidal Intention: No Insight: Poor Judgment: Poor Assessment and Plan - Assessment (1) Dementia with behavioral disturbance Code(s): F03.91 - Unspecified dementia with behavioral disturbance Status: Acute - Plan Plan: Continue current treatment plan. Justification for Continued Inpatient Stay: Moving patient to less restrictive environment may result in her decompensation. Request Healthcare Surrogate/Guardian Advocate?: Yes
[2018-09-05] MEDS: Ascorbic Acid 500 MG Tablet PO SCH ×2 (09:00→20:42)
[2018-09-05] MEDS: Insulin Detemir Inj 1,000 UNIT/10 ML Vial SQ SCH (10:34)
[2018-09-05] MEDS: Escitalopram 10 MG Tablet PO SCH (10:37)
[2018-09-05] MEDS: Lisinopril 10 MG Tablet PO SCH (10:43)
[2018-09-05] MEDS: QUEtiapine 25 MG Tablet PO SCH ×3 (10:47→22:37)
[2018-09-05] MEDS: Lactobacillus Acidophilus/L. Spores Tablet PO SCH (10:49)
[2018-09-05] MEDS: Magnesium Oxide 400 MG Tablet PO SCH (10:49)
[2018-09-05] MEDS: Famotidine 20 MG Tablet PO SCH (10:50)
[2018-09-05] MEDS: Ferrous Sulfate 325 MG Tablet PO SCH (10:53)
[2018-09-05] MEDS: Multivitamin/Minerals Therapeutic Tablet PO SCH (10:54)
[2018-09-05] MEDS: Docusate Sodium Liq 100 MG/10 ML UDC PO SCH ×2 (10:59→20:42)
[2018-09-05] MEDS ORDERED: Dextrose 50% in Water 50 ML Vial IV.PUSH PRN (13:21)
[2018-09-05] MEDS: Insulin NovoLOG Aspart Correctional Sugar Inj SQ SCH (16:47)
[2018-09-05] MEDS: Mirtazapine 15 MG Tablet PO SCH (20:42)
[2018-09-06] MEDS: Insulin NovoLOG Aspart Correctional Sugar Inj SQ SCH ×5 (00:36→21:09)
--- NOTE | 2018-09-06 09:28 | P.TTN ---
- Patient Problems Problems: 1. Discharge planning 2. Medication compliance 3. Knowledge deficit 4. Lack of coping skills - Progress Toward Goals Provider Present: Dr. Ganesh Barry, Dr. Raúl Beltran Provider Input: 09/01/18: New admission will meet today. 09/06/18: Provider signed [id number] form. Continue with locating safe placement for patient safe discharge. Nurse(s) Present: Renate Nurse Input: 09/01/18: Med Compliant, Exit seeking, Guarded. 09/06/18: Patient continues with medication compliance, only oriented to self at this time. Patient has been eating and drinking well. Psychiatric Counselors Present: Aquilino Galvan Jr., [facility], Jessie Mayorga, [facility] Psychiatric Therapist Input: 09/01/18: Counselor faxed packet to [facility]. 09/06/18: Counselor will follow up with Evan at [facility]. Patient to follow up with safe discharge to [facility] following approval by Evan. At this time family is agreeable to patient following up with placement at [facility]. Group Spec/RT/OT/NATH Present: Joanne Francisco, GPS, Ashkan Jenkins, OT, Faheem Hawk, NATH Group Spec/RT/OT/NATH Input: 09/01/18: Pt is on a 1:1 and is unable to tolerate the group activities. Pt has a diffucult time remaining still and will pade the hallways most of the day. Will encourage group participation. 09/06/18: Continue encouraging patient to participate in group. - Discharge Plan Other (Following approval by Evan with [facility] patient to be discharged to facility.) Possible placement - Documentation Teaching Recipient: Patient
[2018-09-06] MEDS: Lactobacillus Acidophilus/L. Spores Tablet PO SCH (09:34)
[2018-09-06] MEDS: Magnesium Oxide 400 MG Tablet PO SCH (09:34)
[2018-09-06] MEDS: Ferrous Sulfate 325 MG Tablet PO SCH (09:34)
[2018-09-06] MEDS: Ascorbic Acid 500 MG Tablet PO SCH ×2 (09:34→20:53)
[2018-09-06] MEDS: Docusate Sodium Liq 100 MG/10 ML UDC PO SCH ×2 (09:34→20:41)
[2018-09-06] MEDS: Lisinopril 10 MG Tablet PO SCH (09:35)
[2018-09-06] MEDS: Escitalopram 10 MG Tablet PO SCH (09:35)
[2018-09-06] MEDS: Multivitamin/Minerals Therapeutic Tablet PO SCH (09:35)
[2018-09-06] MEDS: Famotidine 20 MG Tablet PO SCH (09:35)
[2018-09-06] MEDS: QUEtiapine 25 MG Tablet PO SCH ×4 (09:35→20:36)
[2018-09-06] MEDS: Insulin Detemir Inj 1,000 UNIT/10 ML Vial SQ SCH (09:52)
--- NOTE | 2018-09-06 09:53 | P.PNPSY ---
Subjective Remarks: Patient is seen in the room with nurse Claribel, patient calm cooperative with me showing no significant behavioral problems, chart reviewed, patient compliant medications. She continues to be diffusely confused and disoriented. Only oriented to person. Has shown no significant behavioral issues Review of Systems All other systems reviewed negative except as stated in HPI Mental Status Examination Appearance: Disheveled Consciousness: Alert Orientation: Person Motor Activity: Abnormal gait (Somewhat unsteady gait) Speech: Other (Some poverty of speech) Language: Other (Limited) Fund of Knowledge: Poor Attention and Concentration: Inadequate Memory: Impaired Mood: Sad Affect: Other (Somewhat decreased range and intensity today) Thought Process & Associations: Disorganized Thought Content: Other (Disorganized) Hallucination Type: None Delusion Type: None Suicidal Ideation: No Suicidal Plan: No Suicidal Intention: No Homicidal Ideation: No Homicidal Plan: No Homicidal Intention: No Insight: Poor Judgment: Poor Assessment and Plan - Assessment (1) Alzheimer's disease with late onset Code(s): G30.1 - Alzheimer's disease with late onset; F02.80 - Dementia in other diseases classified elsewhere without behavioral disturbance Status: Acute - Plan Plan: Patient remains confused demented disorganized though compliant medication. No significant behavioral problems noted Justification for Continued Inpatient Stay: At this time patient with decompensated placed on the lower level of care Discharge Planning: Continue to work with family related to appropriate placement Request Healthcare Surrogate/Guardian Advocate?: Yes (1) Alzheimer's disease with late onset Qualifiers: Dementia behavioral disturbance: with behavioral disturbance Qualified Code(s ): G30.1 - Alzheimer's disease with late onset; F02.81 - Dementia in other diseases classified elsewhere with behavioral disturbance
[2018-09-06] MEDS: Mirtazapine 15 MG Tablet PO SCH (20:35)
[2018-09-07] MEDS: Insulin NovoLOG Aspart Correctional Sugar Inj SQ SCH ×4 (08:00→21:43)
[2018-09-07] MEDS: Insulin Detemir Inj 1,000 UNIT/10 ML Vial SQ SCH (08:17)
[2018-09-07] MEDS: Lisinopril 10 MG Tablet PO SCH ×2 (09:46→09:49)
[2018-09-07] MEDS: Magnesium Oxide 400 MG Tablet PO SCH (09:46)
[2018-09-07] MEDS: Escitalopram 10 MG Tablet PO SCH (09:46)
[2018-09-07] MEDS: Docusate Sodium Liq 100 MG/10 ML UDC PO SCH ×2 (09:47→21:43)
[2018-09-07] MEDS: Multivitamin/Minerals Therapeutic Tablet PO SCH (09:47)
[2018-09-07] MEDS: Famotidine 20 MG Tablet PO SCH (09:47)
[2018-09-07] MEDS: Lactobacillus Acidophilus/L. Spores Tablet PO SCH (09:47)
[2018-09-07] MEDS: Ascorbic Acid 500 MG Tablet PO SCH ×2 (09:47→21:43)
[2018-09-07] MEDS: Ferrous Sulfate 325 MG Tablet PO SCH (09:47)
[2018-09-07] MEDS: QUEtiapine 25 MG Tablet PO SCH ×3 (09:48→17:46)
--- NOTE | 2018-09-07 10:59 | P.PNPSY ---
Subjective Remarks: Patient seen in day room with nurse Claribel, chart reviewed, patient compliant medication. Patient continues diffusely confused disoriented oriented only to self. Staff noted that she developed increased irritability refills of her medication yesterday late afternoon towards early evening. She is pleasant with me at this time. At this time we will adjust Seroquel to 25 mg at noon and 6 PM Review of Systems All other systems reviewed negative except as stated in HPI Mental Status Examination Appearance: Appropriate Consciousness: Alert Orientation: Person Motor Activity: Abnormal gait (Somewhat unsteady gait) Speech: Other (Some poverty of speech) Language: Other (Limited) Fund of Knowledge: Poor Attention and Concentration: Inadequate Memory: Impaired Mood: Sad Affect: Other (Somewhat decreased range and intensity today) Thought Process & Associations: Disorganized Thought Content: Other (Disorganized) Hallucination Type: None Delusion Type: None Suicidal Ideation: No Suicidal Plan: No Suicidal Intention: No Homicidal Ideation: No Homicidal Plan: No Homicidal Intention: No Insight: Poor Judgment: Poor Assessment and Plan - Assessment (1) Alzheimer's disease with late onset Code(s): G30.1 - Alzheimer's disease with late onset; F02.80 - Dementia in other diseases classified elsewhere without behavioral disturbance Status: Acute - Plan Plan: Patient continues to mentate diffusely confused and some increased irritability yesterday evening please see medication adjustments above Justification for Continued Inpatient Stay: At this time patient would decompensate if placed in a lower level of care Discharge Planning: To be determined Request Healthcare Surrogate/Guardian Advocate?: Yes (1) Alzheimer's disease with late onset Qualifiers: Dementia behavioral disturbance: with behavioral disturbance Qualified Code(s ): G30.1 - Alzheimer's disease with late onset; F02.81 - Dementia in other diseases classified elsewhere with behavioral disturbance
--- NOTE | 2018-09-07 16:30 | P.PNIM ---
Subjective Interval history: Reconsulted: Hypoglycemia Patient seen and examined today. States she is doing okay. Patient is preoccupied with putting clothes on and putting clothes off. Denies pain and discomfort. Denies SOB/ dyspnea. Denies chest pain, palpitations, headaches, dizziness. Denies fevers, chills, n/v/d. Physical Exam Vital signs: Vital Signs 09/06/18 18:12 09/07/18 06:00 Temperature 97 F L 97.6 F Pulse Rate 96 H 71 Respiratory Rate 18 16 Blood Pressure 124/71 112/50 L Pulse Oximetry 99 97 Intake & Output 09/06/18 09/07/18 09/07/18 18:59 06:59 18:59 Intake Total 240 / 240 Balance 240 / 240 Weight 51.2 kg Intake: Oral 240 / 240 Other: # Voids 3 Narrative: GENERAL: This is a thin appearing, elderly female, in no apparent distress. SKIN: Warm and dry. Pale. HEENT: Normocephalic. Pupils equal round and reactive. Nose without bleeding. Airway patent. NECK: Trachea midline. CARDIOVASCULAR: Regular rate and rhythm without murmurs, gallops, or rubs. RESPIRATORY: Clear to auscultation. Breath sounds equal bilaterally. No wheezes , rales, or rhonchi. GASTROINTESTINAL: Abdomen soft, non-tender, protuberant. Bowel Sounds normoactive x4. MUSCULOSKELETAL: Extremities without clubbing, cyanosis, or edema. NEUROLOGICAL: Awake and alert. Confuse. Moves all extremities. Normal speech. Results - Labs CBC & Chem 7: 08/30/18 11:25 08/31/18 11:27 Laboratory Results - last 24 hr 09/06/18 09/07/18 09/07/18 20:32 07:21 07:35 POC Glucose 77 49 L* 51 L 09/07/18 09/07/18 07:57 11:00 POC Glucose 69 175 H Assessment and Plan - Assessment (1) Dementia with behavioral disturbance Code(s): F03.91 - Unspecified dementia with behavioral disturbance Status: Acute (2) Alzheimer's disease with late onset Code(s): G30.1 - Alzheimer's disease with late onset; F02.80 - Dementia in other diseases classified elsewhere without behavioral disturbance Status: Acute (3) Dementia in other diseases classified elsewhere with behavioral disturbance Code(s): F02.81 - Dementia in other diseases classified elsewhere with behavioral disturbance Status: Acute - Plan 72-year-old female with primary medical history of DM 2, HTN, dementia, Alzheimer's disease who initially came into the hospital under Wilkes act from [facility] secondary to aggressive behavior. She is now admitted to inpatient psychiatry unit for further evaluation. Consulted for assistance with medical management. Type 2 diabetes Hypoglycemia -Diabetic diet -On Levemir 14 units daily, HOLD for now -Monitor Accu-Cheks -May restart on a lower dose if needed. Patient is not eating as much. Alzheimer's dementia with behavioral disturbances -Management per psychiatric team. -Continue Atarax and Vistaril -May need to increase Seroquel dose. Patient continues to be aggressive to staff. Hypertension, controlled HLD -Lisinopril 10 mg daily. Hold Norvasc. Continue ASA -Continue statin medication -Monitor BP trend Mild hyperkalemia -K 5.3. Discontinue potassium supplement. -Recheck BMP, unable to get results as patient has been refusing blood draw Chronic kidney disease -Stable. Creatinine 1.3 which is baseline for patient. -Monitor renal indicis intermittently Normocytic, normochromic anemia Possibly anemia of chronic disease -No signs of bleeding. No known history of anemia. -Iron supplement daily DVT prophylaxis, Ambulation. Code Status: Full Code Discussed Condition With: Patient, nursing Discharge Planning: DC disposition by primary team (2) Alzheimer's disease with late onset Qualifiers: Dementia behavioral disturbance: with behavioral disturbance Qualified Code(s ): G30.1 - Alzheimer's disease with late onset; F02.81 - Dementia in other diseases classified elsewhere with behavioral disturbance
[2018-09-07] MEDS: Mirtazapine 15 MG Tablet PO SCH (20:07)
[2018-09-08] MEDS: Insulin NovoLOG Aspart Correctional Sugar Inj SQ SCH ×4 (08:26→21:41)
[2018-09-08] MEDS: Escitalopram 10 MG Tablet PO SCH (10:26)
[2018-09-08] MEDS: Lactobacillus Acidophilus/L. Spores Tablet PO SCH (10:27)
[2018-09-08] MEDS: Multivitamin/Minerals Therapeutic Tablet PO SCH (10:28)
[2018-09-08] MEDS: Famotidine 20 MG Tablet PO SCH (10:30)
[2018-09-08] MEDS: Lisinopril 10 MG Tablet PO SCH (10:30)
[2018-09-08] MEDS: Ascorbic Acid 500 MG Tablet PO SCH ×2 (10:32→20:32)
[2018-09-08] MEDS: Magnesium Oxide 400 MG Tablet PO SCH (10:32)
[2018-09-08] MEDS: Docusate Sodium Liq 100 MG/10 ML UDC PO SCH ×2 (11:06→20:32)
[2018-09-08] MEDS: Ferrous Sulfate 325 MG Tablet PO SCH (11:07)
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
[2018-09-08] MEDS: QUEtiapine 25 MG Tablet PO SCH ×2 (11:53→18:52)
--- NOTE | 2018-09-08 17:52 | P.PN ---
Subjective Interval history: Follow-up for hypoglycemia. EMR reviewed, patient's blood sugars much improved. The patient is seen ambulating in the day room. She has no medical complaints. Denies any headache, lightheadedness, dizziness, nausea/vomiting, or abdominal complaints. Discussed with RN, no acute concerns. Physical Exam Vital signs: Vital Signs 09/08/18 06:48 Temperature 97.6 F Pulse Rate 73 Blood Pressure 136/58 L Pulse Oximetry 96 Intake & Output 09/07/18 09/08/18 09/08/18 18:59 06:59 18:59 Intake Total 340 / 340 340 / 340 Balance 340 / 340 340 / 340 Intake: Oral 340 / 340 240 / 240 Oral Supplement 100 / 100 Other: # Voids 2 2 # Bowel Movements 0 Narrative: GENERAL: Well-nourished, well-developed confused elderly female patient in [facility]. SKIN: Warm and dry. No rash. HEENT: Normocephalic. Atraumatic. Pupils equal and round. Mucous membranes pink and moist. NECK: Supple. Trachea midline. CARDIOVASCULAR: Regular rate and rhythm. No murmur appreciated. RESPIRATORY: No accessory muscle use. Clear to auscultation. Breath sounds equal bilaterally. GASTROINTESTINAL: Abdomen soft, non-tender, nondistended. Normoactive bowel sounds x4. MUSCULOSKELETAL: No obvious deformities. Extremities without clubbing, cyanosis , or edema. NEUROLOGICAL: Awake and alert. No obvious cranial nerve deficits. Moving all extremities spontaneously. Normal speech. Results - Labs CBC & Chem 7: 08/30/18 11:25 08/31/18 11:27 Laboratory Results - last 24 hr 09/07/18 09/08/18 09/08/18 20:11 06:46 11:48 POC Glucose 178 H 126 H 115 H 09/08/18 16:28 POC Glucose 160 H - Imaging Elbow X-Ray 08/30/18 00:00 CONCLUSION: No evidence of recent bony injury. Head CT 08/30/18 00:00 CONCLUSION: No acute intracranial injury . Foot X-Ray 09/01/18 00:00 CONCLUSION: No evidence of acute fracture. Significant bone demineralization. Status post ORIF of the distal tibia and fibula. Assessment and Plan - Assessment (1) Dementia with behavioral disturbance Code(s): F03.91 - Unspecified dementia with behavioral disturbance Status: Acute (2) Alzheimer's disease with late onset Code(s): G30.1 - Alzheimer's disease with late onset; F02.80 - Dementia in other diseases classified elsewhere without behavioral disturbance Status: Acute (3) Dementia in other diseases classified elsewhere with behavioral disturbance Code(s): F02.81 - Dementia in other diseases classified elsewhere with behavioral disturbance Status: Acute - Plan 72-year-old female with primary medical history of DM 2, HTN, dementia, Alzheimer's disease who initially came into the hospital under Wilkes act from [facility] secondary to aggressive behavior. She is now admitted to inpatient psychiatry unit for further evaluation. Consulted for assistance with medical management. Type 2 diabetes with Hypoglycemia -Diabetic diet -On Levemir 14 units daily, HOLD for now -Monitor Accu-Cheks -May restart on a lower dose if needed. Patient is not eating as much. -BG much improved, hemoglobin A1c 5.7, continue to hold hypoglycemics at discharge -Outpatient follow-up with PCP Alzheimer's dementia with behavioral disturbances -Management per psychiatric team. -Continue Atarax and Vistaril HTN/HLD: BP controlled -Lisinopril 10 mg daily. Hold Norvasc. Continue ASA -Continue statin medication -Monitor BP trend Mild hyperkalemia -K 5.3. Discontinue potassium supplement. -Recheck BMP, unable to get results as patient has been refusing blood draw Chronic kidney disease -Stable. Creatinine 1.3 which is baseline for patient. -Monitor BMP intermittently Normocytic, normochromic anemia Possibly anemia of chronic disease -No signs of bleeding. No known history of anemia. -Iron supplement daily DVT prophylaxis, Ambulation. Discharge Planning: The patient is medically stable for discharge to SNF. (2) Alzheimer's disease with late onset Qualifiers: Dementia behavioral disturbance: with behavioral disturbance Qualified Code(s ): G30.1 - Alzheimer's disease with late onset; F02.81 - Dementia in other diseases classified elsewhere with behavioral disturbance
[2018-09-08 18:15] VITALS: BP 122/87; PULSE 92; RESP 18; TEMP 97.2; O2SAT 97
[2018-09-08] MEDS: Mirtazapine 15 MG Tablet PO SCH (20:32)
--- NOTE | 2018-09-09 07:54 | P.TTN ---
- Patient Problems Problems: 1. Discharge planning 2. Medication compliance 3. Knowledge deficit 4. Lack of coping skills - Progress Toward Goals Provider Present: Dr. Ganesh Barry, Dr. Raúl Beltran Provider Input: 09/08/18: Pt is not currently stable, she meets in-pt status. Dc plan is to return pt to [facility] when pt is stable. 09/01/18: New admission will meet today. 09/06/18: Provider signed [id number] form. Continue with locating safe placement for patient safe discharge. Nurse(s) Present: Renate Nurse Input: 09/01/18: Med Compliant, Exit seeking, Guarded. 09/06/18: Patient continues with medication compliance, only oriented to self at this time. Patient has been eating and drinking well. Psychiatric Counselors Present: Aquilino Galvan Jr., [facility], Jessie Mayorga, [facility] Psychiatric Therapist Input: 09/01/18: Counselor faxed packet to [facility]. 09/06/18: Counselor will follow up with Evan at [facility]. Patient to follow up with safe discharge to [facility] following approval by Evan. At this time family is agreeable to patient following up with placement at [facility]. Group Spec/RT/OT/NATH Present: MARILYN Lujan, Ashkan Jenkins, OT, PORTILLO Matthew Group Spec/RT/OT/NATH Input: 09/01/18: Pt is on a 1:1 and is unable to tolerate the group activities. Pt has a diffucult time remaining still and will pade the hallways most of the day. Will encourage group participation. 09/06/18: Continue encouraging patient to participate in group. Occupational Therapist Input: 09/08/18: Pt does not currently attend groups, she is guarded and cannot tolerate group activities. - Discharge Plan Other (Following approval by Evan with [facility] patient to be discharged to facility.) 09/08/18: Pt is not currently stable, she meets in-pt status. Dc plan is to return pt to [facility] when pt is stable. Possible placement - Documentation Teaching Recipient: Patient
[2018-09-09] MEDS: Magnesium Oxide 400 MG Tablet PO SCH (09:00)
[2018-09-09] MEDS: Lisinopril 10 MG Tablet PO SCH (09:00)
[2018-09-09] MEDS: Lactobacillus Acidophilus/L. Spores Tablet PO SCH (09:00)
[2018-09-09] MEDS: Multivitamin/Minerals Therapeutic Tablet PO SCH (09:00)
[2018-09-09] MEDS: Ferrous Sulfate 325 MG Tablet PO SCH (09:00)
[2018-09-09] MEDS: Famotidine 20 MG Tablet PO SCH (09:00)
[2018-09-09] MEDS: Insulin NovoLOG Aspart Correctional Sugar Inj SQ SCH ×3 (09:00→16:54)
[2018-09-09] MEDS: Docusate Sodium Liq 100 MG/10 ML UDC PO SCH (09:00)
[2018-09-09] MEDS: Ascorbic Acid 500 MG Tablet PO SCH (09:00)
[2018-09-09] MEDS: Escitalopram 10 MG Tablet PO SCH (09:00)
--- NOTE | 2018-09-09 11:21 | P.PNPSY ---
Subjective Remarks: Patient seen today in [facility] with her and daughter, patient retained by Abdiel Robb. Patient's scheduled discharge yesterday needed to be canceled because the bed placement was canceled due to funding issues. Patient seen in [facility] she was pleasant calm continues diffusely confused though showed no behavioral problems. For now continue treatment continue the admission until appropriate placement can be made Review of Systems All other systems reviewed negative except as stated in HPI Mental Status Examination Appearance: Appropriate Consciousness: Alert Orientation: Person Motor Activity: Abnormal gait (Somewhat unsteady gait) Speech: Other (Some poverty of speech) Language: Other (Limited) Fund of Knowledge: Poor Attention and Concentration: Inadequate Memory: Impaired Mood: Other (Euthymic to mildly dysphoric) Affect: Other (Somewhat decreased range and intensity today) Thought Process & Associations: Disorganized Thought Content: Other (Disorganized) Hallucination Type: None Delusion Type: None Suicidal Ideation: No Suicidal Plan: No Suicidal Intention: No Homicidal Ideation: No Homicidal Plan: No Homicidal Intention: No Insight: Poor Judgment: Poor Assessment and Plan - Assessment (1) Alzheimer's disease with late onset Code(s): G30.1 - Alzheimer's disease with late onset; F02.80 - Dementia in other diseases classified elsewhere without behavioral disturbance Status: Acute - Plan Plan: Patient's discharge was canceled due to cancellation of bed placement by facility. Continue all orders continue to work at finding appropriate placement Justification for Continued Inpatient Stay: At this time patient would decompensate a place to a lower level of care Discharge Planning: To be determined with help of patient's family Request Healthcare Surrogate/Guardian Advocate?: Yes (1) Alzheimer's disease with late onset Qualifiers: Dementia behavioral disturbance: with behavioral disturbance Qualified Code(s ): G30.1 - Alzheimer's disease with late onset; F02.81 - Dementia in other diseases classified elsewhere with behavioral disturbance
[2018-09-09] MEDS: QUEtiapine 25 MG Tablet PO SCH ×2 (12:38→18:34)
[2018-09-09] MEDS ORDERED: QUEtiapine 25 MG Tablet PO ONE (12:46)
== END 2018-09-09 18:40 ==
LOC: NEPC 09:43 → NEDA 15:28 → H250 16:14
PROVIDERS: ADMIT Psychiatry & Neurology Psychiatry; ATTEND Psychiatry & Neurology Psychiatry